=== PATIENT | female | born 1950 | race Caucasian/White ===

== ENCOUNTER 2019-04-30 12:46 | Inpatient (IN) | payer MEDICARE, BC ==
--- NOTE | 2019-04-30 13:25 | ED Physician Chart ---
ED Chief Complaint/HPI - Patient Information Date Seen:: 04/30/19 Time Seen:: 13:20 Chief Complaint:: Right lower leg pain and edema History of Present Illness:: 68 yo female with history of anemia, GERD, DM II on insulin, hypertension, hyperlipidemia, fell with right ankle sprained when her walker failed to stop a month ago. Pt went to [facility] ED where X ray of right ankle showed no fracture. Subsequently, pt developed swelling of the right leg with persisting pain in the right ankle. Pt lives primarily by herself in a rented trailer. Her son was in and out nursing home. Her son is currently living with pt. As her son caused trouble in the trailer park, both pt and her son are facing the possibility of being evicted. Allergies:: Allergies Allergy/AdvReac Type Severity Reaction Status Date / Time No Known Allergies Allergy Verified 04/30/19 13:06 Vitals:: Vital Signs - 8 hr 04/30/19 12:56 Temp 98.0 F HR 96 RR 20 BP 156/84 O2 Sat % 97 ED Review of Systems - Review of Systems General/Constitutional: No fever, No chills, Weakness Skin: Skin lesions Head: Headache Eyes: No pain ENT: Earache Neck: No neck pain Cardio Vascular: No chest pain Pulmonary: No SOB GI: No nausea, No vomiting Musculoskeletal: Bone or joint pain Neurological: No focal symptoms, No seizure ED Past Medical History - Past Medical History Past Medical History: HTN, DM, Dyslipidemia, PUD/GERD, Arthritis, Other (Anemia) Social History: Non Smoker, No Alcohol, No Drug Use Surgical History: other (Left scalp surgery) Family Medical History - Family Member Mother History Unknown: Yes ED Physical Exam - Physical Examination General/Constitutional: Awake, Alert Head: Atraumatic Eyes: PERRL, EOMI Other Skin comments:: a few wounds with scab on bilateral lower legs Neck: No nuchal rigidity Respiratory: No Wheeze/Rhonchi/Rales Cardio Vascular: RRR, No murmur, gallop, rubs, NL S1 S2 GI: No tenderness/rebounding/guarding Other Extremities comments:: Right leg 2+ edema Neuro/Psych: Alert/oriented ED Labs/Radiology/EKG Results - Lab Results Results: Laboratory Last Values WBC 6.9 Th/cmm (4.8-10.8) 04/30/19 14:00 RBC 4.24 Mil/cmm (3.80-5.20) 04/30/19 14:00 Hgb 11.8 gm/dL (12-16) L 04/30/19 14:00 Hct 36.4 % (41.0-60) L 04/30/19 14:00 MCV 85.9 fl (81-100) 04/30/19 14:00 MCH 27.9 pg (27.0-31.0) 04/30/19 14:00 MCHC Differential 32.5 pg (28.0-36.0) 04/30/19 14:00 RDW 13.2 % (11.5-20.0) 04/30/19 14:00 Plt Count 246 Th/cmm (150-400) 04/30/19 14:00 MPV 9.0 fl 04/30/19 14:00 Neutrophils % 65.7 % (40.0-80.0) 04/30/19 14:00 Lymphocytes % 26.4 % (20.0-50.0) 04/30/19 14:00 Monocytes % 5.3 % (2.0-10.0) 04/30/19 14:00 Eosinophils % 2.0 % (0.0-5.0) 04/30/19 14:00 Basophils % 0.6 % (0.0-2.0) 04/30/19 14:00 PT 9.3 SECONDS (9.5-11.5) L 04/30/19 14:00 INR 0.88 (0.5-1.4) 04/30/19 14:00 PTT (Actin FS) 23.0 SECONDS (26.0-38.0) L 04/30/19 14:00 D-Dimer 2140 ng/mL (100-400) H 04/30/19 14:00 Sodium 129 mEq/L (136-145) L 04/30/19 14:00 Potassium 4.8 mEq/L (3.5-5.1) 04/30/19 14:00 Chloride 97 mEq/L (98-107) L 04/30/19 14:00 Carbon Dioxide 22.3 mEq/L (21.0-31.0) 04/30/19 14:00 Anion Gap 14.5 (7.0-16.0) 04/30/19 14:00 BUN 49 mg/dL (7-25) H 04/30/19 14:00 Creatinine 1.2 mg/dL (0.6-1.2) 04/30/19 14:00 Est GFR ( Amer) 57.5 ml/min (>90) 04/30/19 14:00 Est GFR (Non-Af Amer) 47.5 ml/min 04/30/19 14:00 BUN/Creatinine Ratio 40.8 04/30/19 14:00 Glucose 409 mg/dL (70-105) H 04/30/19 14:00 Calcium 9.4 mg/dL (8.6-10.3) 04/30/19 14:00 Total Bilirubin 0.4 mg/dL (0.3-1.0) 04/30/19 14:00 AST 14 U/L (13-39) 04/30/19 14:00 ALT 20 U/L (7-52) 04/30/19 14:00 Alkaline Phosphatase 121 U/L (34-104) H 04/30/19 14:00 Troponin I < 0.01 ng/mL (0.01-0.05) L 04/30/19 14:00 B-Natriuretic Peptide 7.1 pg/mL (5.0-100.0) 04/30/19 14:00 Total Protein 7.0 gm/dL (6.0-8.3) 04/30/19 14:00 Albumin 3.8 gm/dL (3.7-5.3) 04/30/19 14:00 Globulin 3.2 gm/dL 04/30/19 14:00 Albumin/Globulin Ratio 1.2 (1.0-1.8) 04/30/19 14:00 Triglycerides 286 mg/dL (<150) H 04/30/19 14:00 Cholesterol 229 mg/dL (<200) H 04/30/19 14:00 LDL Cholesterol Direct 123 mg/dL (75-193) 04/30/19 14:00 HDL Cholesterol 43 mg/dL (23-92) 04/30/19 14:00 TSH 0.97 uIU/ml (0.34-5.60) 04/30/19 14:00 Urine Source MIDSTREAM 04/30/19 14:00 Urine Color YELLOW 04/30/19 14:00 Urine Clarity CLOUDY (CLEAR) H 04/30/19 14:00 Urine pH 5.5 (4.6 - 8.0) 04/30/19 14:00 Ur Specific [place] 1.020 (1.005-1.030) 04/30/19 14:00 Urine Protein 100 mg/dL (NEGATIVE) H 04/30/19 14:00 Urine Glucose (UA) >=1000 mg/dL (NEGATIVE) H 04/30/19 14:00 Urine Ketones NEGATIVE mg/dL (NEGATIVE) 04/30/19 14:00 Urine Blood TRACE (NEGATIVE) 04/30/19 14:00 Urine Nitrate NEGATIVE (NEGATIVE) 04/30/19 14:00 Urine Bilirubin NEGATIVE (NEGATIVE) 04/30/19 14:00 Urine Urobilinogen 0.2 E.U./dL (0.2 - 1.0) 04/30/19 14:00 Ur Leukocyte Esterase MODERATE (NEGATIVE) H 04/30/19 14:00 Urine RBC 2-5 /hpf (0-5) 04/30/19 14:00 Urine WBC 10-25 /hpf (0-5) H 04/30/19 14:00 Ur Epithelial Cells MODERATE /lpf (FEW) 04/30/19 14:00 Urine Bacteria 3+ /hpf (NONE SEEN) H 04/30/19 14:00 Fine Granular Casts 0-2 /lpf (NONE SEEN) H 04/30/19 14:00 Urine Opiates Screen NEGATIVE (NEGATIVE) 04/30/19 14:00 Urine Methadone Screen NEGATIVE (NEGATIVE) 04/30/19 14:00 Ur Barbiturates Screen NEGATIVE (NEGATIVE) 04/30/19 14:00 Ur Tricyclics Screen NEGATIVE (NEGATIVE) 04/30/19 14:00 Ur Phencyclidine Scrn NEGATIVE (NEGATIVE) 04/30/19 14:00 Amphetamines Screen NEGATIVE (NEGATIVE) 04/30/19 14:00 U Methamphetamines Scrn NEGATIVE (NEGATIVE) 04/30/19 14:00 U Benzodiazepines Scrn NEGATIVE (NEGATIVE) 04/30/19 14:00 U Cocaine Metab Screen NEGATIVE (NEGATIVE) 04/30/19 14:00 U Cannabinoids Screen NEGATIVE (NEGATIVE) 04/30/19 14:00 - Radiology Results Results: CXR: no focal consolidation Right ankle X ray: no acute bony fracture Right knee X ray: moderate to severe DJD RLE venous u/s: no evidence of DVT by conservation technician CTA chest: small intraluminal filling defect within branches of left lower pulm arteries consistent with PE, per STAT radiology report - EKG Interpretations EKG Time:: 13:46 Rate & Rhythm: 87 bpm, sinus rhythm Comments:: Non specific ST changes in I, II ED Assessment - Assessment General Assessment: Pulmonary embolism with elevated D-Dimer Urinary tract infection Hyponatremia Dehydration Mild anemia, normocytic Right lower extremity edema Right knee DJD Assessment/Comments:: CBC, CMP, BNP, troponin, HbA1c, lipid panel CXR, EKG Right ankle X ray Right knee X ray RLE venous u/s CTA chest to rule out PE NS 1L IV bolus Ceftriaxone 1g IV Heparin 7000 U IV bolus Heparin drip per pharmacy ordered To check PTT 6 hours after starting of heparin bolus and drip Admit to telemetry The diagnosis of PE was notified to ER nursing staff and admitting MD. ED Septic Shock - . Is Septic Shock (SBP<90, OR Lactate>4 mmol\L) present?: No - <6hrs of presentation: Vital Signs: Vital Signs - 8 hr 04/30/19 12:56 Temp 98.0 F HR 96 RR 20 BP 156/84 O2 Sat % 97 ED Reassessment (Disposition) - Reassessment Reassessment Condition:: Improved - Patient Disposition Discharge/Transfer:: Acute Care w/in this hosp Admitting Medical Physician:: Jean Hitchcock
[2019-04-30 14:06] LABS: % BASOPHILS 0.6 % (0.0-2.0); % LYMPHOCYTES 26.4 % (20.0-50.0); % MONOCYTES 5.3 % (2.0-10.0); % NEUTROPHILS 65.7 % (40.0-80.0); EOSINOPHILE ABSOLUTE 0.1 Th/cmm (0.1-0.4); HEMATOCRIT 36.4 % (41.0-60); HEMOGLOBIN 11.8 gm/dL (12-16); LYMPHOCYTE ABSOLUTE 1.8 Th/cmm (1.5-3.0); MEAN CELL VOLUME 85.9 fl (81-100); MEAN CORPUSCULAR HEMOGLOBIN 27.9 pg (27.0-31.0); MEAN CORPUSCULAR HGB CONC 32.5 pg (28.0-36.0); MONOCYTE ABSOLUTE 0.4 Th/cmm (0.3-1.0); NEUTROPHILE ABSOLUTE 4.6 Th/cmm (1.8-8.0); PLATELET COUNT 246 Th/cmm (150-400); RED BLOOD COUNT 4.24 Mil/cmm (3.80-5.20); RED CELL DISTRIBUTION WIDTH 13.2 % (11.5-20.0); URINE SOURCE MIDSTREAM; WHITE BLOOD COUNT 6.9 Th/cmm (4.8-10.8)
[2019-04-30 14:10] LABS: URINE BILIRUBIN NEGATIVE (NEGATIVE); URINE BLOOD TRACE (NEGATIVE); URINE GLUCOSE (UA) >=1000 mg/dL (NEGATIVE); URINE KETONE NEGATIVE (NEGATIVE); URINE LEUKOCYTE ESTERASE MODERATE (NEGATIVE); URINE MICROSCOPIC INDICATED? YES; URINE NITRATE NEGATIVE (NEGATIVE); URINE PH 5.5 (4.6 - 8.0); URINE PROTEIN 100 mg/dL (NEGATIVE); URINE UROBILINOGEN 0.2 E.U./dL (0.2 - 1.0)
[2019-04-30 14:11] LABS: URINE CLARITY CLOUDY (CLEAR); URINE COLOR YELLOW
[2019-04-30 14:18] LABS: AMPHETAMINE URINE NEGATIVE (NEGATIVE); BARBITURATES URINE NEGATIVE (NEGATIVE); BENZODIAZEPINES QUAL URINE NEGATIVE (NEGATIVE); CANNABINOID THC NEGATIVE (NEGATIVE); COCAINE METABOLITE QUAL URINE NEGATIVE (NEGATIVE); METHADONE URINE NEGATIVE (NEGATIVE); METHAMPHETAMINES QUAL URINE NEGATIVE (NEGATIVE); OPIATES (MORPHINE) QUAL. URINE NEGATIVE (NEGATIVE); PHENCYCLIDINE (PCP) URINE NEGATIVE (NEGATIVE); TRICYCLICS (TCA) QUAL. URINE NEGATIVE (NEGATIVE)
[2019-04-30 14:19] LABS: INR 0.88 (0.5-1.4)
[2019-04-30 14:22] LABS: ALB/GLOB RATIO 1.2 (1.0-1.8); ALBUMIN 3.8 gm/dL (3.7-5.3); ANION GAP 14.5 (7.0-16.0); CALCIUM SERUM 9.4 mg/dL (8.6-10.3); CARBON DIOXIDE 22.3 mEq/L (21.0-31.0); CREATININE - SERUM 1.2 mg/dL (0.6-1.2); GFR AFRICAN-AMERICAN 57.5 ml/min (>90); GFR NON AFRICAN-AMERICAN 47.5 ml/min; POTASSIUM SERUM 4.8 mEq/L (3.5-5.1)
[2019-04-30 14:28] LABS: URINE BACTERIA 3+ /hpf (NONE SEEN); URINE EPITHELIAL CELLS MODERATE /lpf (FEW); URINE FINE GRANULAR CAST 0-2 /lpf (NONE SEEN)
[2019-04-30] MEDS ORDERED: Sodium Chloride 0.9% 1,000 ML IV ONE (14:55)
[2019-04-30] MEDS ORDERED: cefTRIAXone 1 GM in Sodium Chloride 0.9% 50 ML IV ONE (15:05)
[2019-04-30] MEDS ORDERED: INSULIN HUMAN REGULAR 100 UNIT/ML VIAL SUBQ ONE (15:16)
[2019-04-30] MEDS ORDERED: INSULIN HUMAN REGULAR 100 UNIT/ML VIAL ONE (15:18)
[2019-04-30 16:16] LABS: BILIRUBIN,TOTAL 0.4 mg/dL (0.3-1.0)
[2019-04-30] MEDS ORDERED: IOHEXOL 350mgI/mL 100mL Bottle IVP ONE (16:33)
[2019-04-30] MEDS ORDERED: Heparin Sod 5,000Units/ML 5,000 UNITS/ML VIAL IVP ONE (18:36)
[2019-04-30] MEDS: Heparin 25,000 Units In D5W 25,000 UNITS/250 ML BAG IV PRN (19:12)
[2019-04-30] MEDS ORDERED: GLUCAGON HCl 1 MG KIT IM PRN (20:39)
[2019-04-30] MEDS ORDERED: Dextrose 50% 50 mL Abboject IVP PRN (20:39)
[2019-04-30 20:48] VITALS: BP 137/77
[2019-04-30] MEDS: Sodium Chloride 0.9% 1,000 ML IV SCH (21:14)
[2019-04-30] MEDS ORDERED: INSULIN LISPRO 100 UNIT/ML VIAL SUBQ ONE (21:35)
[2019-04-30] MEDS: INSULIN LISPRO SLIDING SCALE 100 UNITS/ML UNIT SUBQ SCH (21:36)
[2019-05-01] MEDS ORDERED: Pneumococcal Vaccine 0.5 mL Vial IM ONE (00:09)
[2019-05-01] MEDS: INSULIN LISPRO SLIDING SCALE 100 UNITS/ML UNIT SUBQ SCH ×4 (08:57→20:58)
[2019-05-01 09:09] LABS: INR 0.94 (0.5-1.4)
--- NOTE | 2019-05-01 11:33 | Diagnostic Imaging Report ---
CHEST X-RAY: AP view INDICATION: Shortness of breath COMPARISON: None FINDINGS: There is abnormal right suprahilar opacity. No effusions. Heart size normal. Degenerative changes of the spine are noted. IMPRESSION: Abnormal right suprahilar opacity. Neoplasm or pneumonia cannot be excluded recommend further assessment CT examination.
--- NOTE | 2019-05-01 11:34 | Diagnostic Imaging Report ---
Right lower extremity DVT study HISTORY: Edema COMPARISON: None Technique: Longitudinal and transverse sonographic images of the right lower extremity veins were obtained with doppler analysis. FINDINGS: There is normal compressibility, augmentation and phasicity of the right common femoral, superficial femoral, popliteal, and posterior tibial veins. No thrombus is visualized. IMPRESSION: No evidence of thrombus within the right lower extremity veins.
--- NOTE | 2019-05-01 11:36 | Diagnostic Imaging Report ---
Right knee 3 views Indication: pain Comparison: none Findings: Moderate to advanced degenerative changes are noted with advanced narrowing of the medial knee compartment. Chondrocalcinosis is noted. No evidence of an acute fracture or joint effusion. Marginal osteophytic spurs are noted. Few nonspecific calcifications are seen surrounding the knee joint. Diffuse atherosclerosis is noted. Impression: Moderate to advanced degenerative changes greatest within the medial knee compartment. No evidence of an acute fracture Chondrocalcinosis. Atherosclerotic vascular disease. In the setting of trauma, if clinical symptoms persist and there is continued concern for an occult fracture, follow up exams in 5-7 days is suggested.
--- NOTE | 2019-05-01 11:37 | Diagnostic Imaging Report ---
Right ankle 3 views Indication: pain Comparison: none Findings: Generalized subcutaneous edema is noted. Large distal Achilles and plantar calcaneal spurs are noted. Mild degenerative changes are noted. No evidence of an acute fracture or dislocation. Vascular phleboliths are noted. Impression: No evidence of an acute fracture. Generalized subcutaneous edema, correlate clinically Large distal Achilles a large plantar calcaneal spur. Atherosclerotic vascular disease. In the setting of trauma, if clinical symptoms persist and there is continued concern for an occult fracture, follow up exams in 5-7 days is suggested.
--- NOTE | 2019-05-01 11:46 | Diagnostic Imaging Report ---
CT Chest PE study Indication: Elevated d-dimer Comparison: Chest x-ray earlier the same day, Technique: Axial images were obtained from the base of the neck to the upper abdomen, following administration of IV contrast, PE protocol. Multiplanar reconstructions were made. total DLP: 366, CTDI9.2 FINDINGS: No evidence of mediastinal lymphadenopathy. The heart size is normal. Mild atherosclerotic vascular disease is noted. No pericardial effusion identified. Evaluation of the pulmonary parenchyma demonstrates hypoventilatory and atelectatic lung changes. No focal consolidation or pleural effusions. Evaluation of the pulmonary arterial vasculature demonstrates pulmonary emboli involving the segmental and subsegmental branches supplying the left lower lobe. The upper abdomen demonstrates no acute abnormalities. There is mild nodularity left adrenal gland. Degenerative changes of the spine are noted. IMPRESSION: Positive PE study with pulmonary emboli involving the segmental and subsegmental branches supplying the left lower lobe. Atelectatic lung changes with no focal consolidation identified Minimal atherosclerotic vascular disease. There is mild nodularity of the left adrenal gland. Recommend correlation with clinical history and old exams and short-term follow-up surveillance. Results relayed to the referring team following exam.
[2019-05-01] MEDS: Sodium Chloride 0.9% 1,000 ML IV SCH (11:49)
[2019-05-01] MEDS: Aspirin 81mg Chewable Tab PO SCH (12:17)
[2019-05-01] MEDS: Pantoprazole 40 mg EC Tab PO SCH (12:17)
[2019-05-01] MEDS: Insulin Glargine 100 units/ml 10ml Vial SUBQ SCH ×2 (12:37→20:58)
[2019-05-01] MEDS ORDERED: INSULIN ASPART 12 UNIT SUBQ SCH (14:00)
[2019-05-01] MEDS ORDERED: Apixaban 5 MG TABLET PO SCH ×2 (14:30→17:00)
[2019-05-01] MEDS: Heparin 25,000 Units In D5W 25,000 UNITS/250 ML BAG IV PRN (14:40)
[2019-05-01] MEDS: cefTRIAXone 1 GM in Sodium Chloride 0.9% 50 ML IV SCH (16:35)
--- NOTE | 2019-05-01 18:01 | History & Physical ---
ADMIT DATE: 04/30/2019 CHIEF COMPLAINT: Cough and not feeling well. HISTORY OF PRESENT ILLNESS: This is a 68-year-old female with underlying history of diabetes, hypertension, neuropathy, hyperlipidemia, who was brought into Emergency Room for evaluation of the generalized weakness, not feeling well for the past few days. The patient was brought to Emergency Room. Initial workup suggestive of elevated D-dimer, UTI, hyponatremia and uncontrolled diabetes. Subsequently, the patient had a CT angio done, which came back positive for PE per ER report, so the patient was admitted for further evaluation and treatment. The patient denies any chest pain, no shortness of breath, no dizziness, no palpitations, no fever, no chills, no nausea, no vomiting, no abdominal pain, no headache or any trouble vision, trouble speech. PAST MEDICAL HISTORY: History of diabetes, hypertension, hyperlipidemia, neuropathy. PAST SURGICAL HISTORY: Denies. FAMILY HISTORY: Denies. SOCIAL HISTORY: Lives at home. Denies any tobacco use. CURRENT MEDICATIONS: Per medication reconciliation. ALLERGIES: No known drug allergies. REVIEW OF SYSTEMS: As per HPI, 12-point system is negative. PHYSICAL EXAMINATION: VITAL SIGNS: Temperature 97.1, pulse 87, respirations 18, blood pressure 152/75, 99% on room air via nasal cannula. HEART: S1, S2 normal. LUNGS: Clear to auscultation bilaterally. ABDOMEN: Soft, nontender. NEUROLOGIC: The patient is alert, awake, follows moves all 4 extremities. EXTREMITIES: No edema or calf tenderness. AVAILABLE LAB DATA: Reviewed. ASSESSMENT: 1. Pulmonary embolism with elevated D-dimer. 2. Urinary tract infection. 3. Hypernatremia. 4. Diabetes, uncontrolled. 5. Hypertension, uncontrolled. 6. Hyperlipidemia. 7. Dehydration. PLAN: The patient admitted to tele unit. The patient was started on heparin drip, IV Rocephin. Hematology consulted. The patient's home medication reconciled and continued. Basal bolus insulin will be given. Monitor Accu-Cheks and insulin sliding coverage will be given. The patient stated that she has a sister diagnosed with the stage IV colon cancer. The patient never had a colonoscopy, also had a mammogram several years ago. We will obtain cancer screening outpatient including mammogram, colon cancer. We also have Hematology/Oncology on board. We will follow up on their recommendations. Discussed with the patient regarding condition per our nursing staff. JOB# [id number]
[2019-05-01] MEDS ORDERED: Insulin Glargine 100 units/ml 10ml Vial SUBQ SCH (21:00)
[2019-05-02] MEDS: Sodium Chloride 0.9% 1,000 ML IV SCH ×2 (01:46→16:57)
[2019-05-02] MEDS: INSULIN LISPRO SLIDING SCALE 100 UNITS/ML UNIT SUBQ SCH ×4 (07:55→21:19)
[2019-05-02] MEDS: Aspirin 81mg Chewable Tab PO SCH (08:34)
[2019-05-02] MEDS: Pantoprazole 40 mg EC Tab PO SCH (08:35)
[2019-05-02] MEDS: Apixaban 5 MG TABLET PO SCH ×2 (08:37→18:00)
[2019-05-02] MEDS: cefTRIAXone 1 GM in Sodium Chloride 0.9% 50 ML IV SCH (17:57)
[2019-05-02] MEDS ORDERED: INSULIN LISPRO 100 UNIT/ML VIAL SUBQ ONE (21:11)
[2019-05-02] MEDS: Insulin Glargine 100 units/ml 10ml Vial SUBQ SCH (21:23)
--- NOTE | 2019-05-02 22:20 | General Progress Note ---
Subjective - Review of Systems Service Date: 05/02/19 Subjective: Patient seen and examined feels better denied any complaints Objective - Results Result Diagrams: 04/30/19 14:00 04/30/19 14:00 Recent Labs: Laboratory Last Values WBC 6.9 Th/cmm (4.8-10.8) 04/30/19 14:00 RBC 4.24 Mil/cmm (3.80-5.20) 04/30/19 14:00 Hgb 11.8 gm/dL (12-16) L 04/30/19 14:00 Hct 36.4 % (41.0-60) L 04/30/19 14:00 MCV 85.9 fl (81-100) 04/30/19 14:00 MCH 27.9 pg (27.0-31.0) 04/30/19 14:00 MCHC Differential 32.5 pg (28.0-36.0) 04/30/19 14:00 RDW 13.2 % (11.5-20.0) 04/30/19 14:00 Plt Count 246 Th/cmm (150-400) 04/30/19 14:00 MPV 9.0 fl 04/30/19 14:00 Neutrophils % 65.7 % (40.0-80.0) 04/30/19 14:00 Lymphocytes % 26.4 % (20.0-50.0) 04/30/19 14:00 Monocytes % 5.3 % (2.0-10.0) 04/30/19 14:00 Eosinophils % 2.0 % (0.0-5.0) 04/30/19 14:00 Basophils % 0.6 % (0.0-2.0) 04/30/19 14:00 PT 9.8 SECONDS (9.5-11.5) 05/01/19 08:45 INR 0.94 (0.5-1.4) 05/01/19 08:45 PTT (Actin FS) 61.4 SECONDS (26.0-38.0) H 05/01/19 14:30 D-Dimer 2140 ng/mL (100-400) H 04/30/19 14:00 Sodium 129 mEq/L (136-145) L 04/30/19 14:00 Potassium 4.8 mEq/L (3.5-5.1) 04/30/19 14:00 Chloride 97 mEq/L (98-107) L 04/30/19 14:00 Carbon Dioxide 22.3 mEq/L (21.0-31.0) 04/30/19 14:00 Anion Gap 14.5 (7.0-16.0) 04/30/19 14:00 BUN 49 mg/dL (7-25) H 04/30/19 14:00 Creatinine 1.2 mg/dL (0.6-1.2) 04/30/19 14:00 Est GFR ( Amer) 57.5 ml/min (>90) 04/30/19 14:00 Est GFR (Non-Af Amer) 47.5 ml/min 04/30/19 14:00 BUN/Creatinine Ratio 40.8 04/30/19 14:00 Glucose 409 mg/dL (70-105) H 04/30/19 14:00 POC Glucose 205 MG/DL (70 - 105) H 05/02/19 20:36 Calcium 9.4 mg/dL (8.6-10.3) 04/30/19 14:00 Total Bilirubin 0.4 mg/dL (0.3-1.0) 04/30/19 14:00 AST 14 U/L (13-39) 04/30/19 14:00 ALT 20 U/L (7-52) 04/30/19 14:00 Alkaline Phosphatase 121 U/L (34-104) H 04/30/19 14:00 Troponin I < 0.01 ng/mL (0.01-0.05) L 04/30/19 14:00 B-Natriuretic Peptide 7.1 pg/mL (5.0-100.0) 04/30/19 14:00 Total Protein 7.0 gm/dL (6.0-8.3) 04/30/19 14:00 Albumin 3.8 gm/dL (3.7-5.3) 04/30/19 14:00 Globulin 3.2 gm/dL 04/30/19 14:00 Albumin/Globulin Ratio 1.2 (1.0-1.8) 04/30/19 14:00 Triglycerides 286 mg/dL (<150) H 04/30/19 14:00 Cholesterol 229 mg/dL (<200) H 04/30/19 14:00 LDL Cholesterol Direct 123 mg/dL (75-193) 04/30/19 14:00 HDL Cholesterol 43 mg/dL (23-92) 04/30/19 14:00 TSH 0.97 uIU/ml (0.34-5.60) 04/30/19 14:00 Urine Source MIDSTREAM 04/30/19 14:00 Urine Color YELLOW 04/30/19 14:00 Urine Clarity CLOUDY (CLEAR) H 04/30/19 14:00 Urine pH 5.5 (4.6 - 8.0) 04/30/19 14:00 Ur Specific [place] 1.020 (1.005-1.030) 04/30/19 14:00 Urine Protein 100 mg/dL (NEGATIVE) H 04/30/19 14:00 Urine Glucose (UA) >=1000 mg/dL (NEGATIVE) H 04/30/19 14:00 Urine Ketones NEGATIVE mg/dL (NEGATIVE) 04/30/19 14:00 Urine Blood TRACE (NEGATIVE) 04/30/19 14:00 Urine Nitrate NEGATIVE (NEGATIVE) 04/30/19 14:00 Urine Bilirubin NEGATIVE (NEGATIVE) 04/30/19 14:00 Urine Urobilinogen 0.2 E.U./dL (0.2 - 1.0) 04/30/19 14:00 Ur Leukocyte Esterase MODERATE (NEGATIVE) H 04/30/19 14:00 Urine RBC 2-5 /hpf (0-5) 04/30/19 14:00 Urine WBC 10-25 /hpf (0-5) H 04/30/19 14:00 Ur Epithelial Cells MODERATE /lpf (FEW) 04/30/19 14:00 Urine Bacteria 3+ /hpf (NONE SEEN) H 04/30/19 14:00 Fine Granular Casts 0-2 /lpf (NONE SEEN) H 04/30/19 14:00 Urine Opiates Screen NEGATIVE (NEGATIVE) 04/30/19 14:00 Urine Methadone Screen NEGATIVE (NEGATIVE) 04/30/19 14:00 Ur Barbiturates Screen NEGATIVE (NEGATIVE) 04/30/19 14:00 Ur Tricyclics Screen NEGATIVE (NEGATIVE) 04/30/19 14:00 Ur Phencyclidine Scrn NEGATIVE (NEGATIVE) 04/30/19 14:00 Amphetamines Screen NEGATIVE (NEGATIVE) 04/30/19 14:00 U Methamphetamines Scrn NEGATIVE (NEGATIVE) 04/30/19 14:00 U Benzodiazepines Scrn NEGATIVE (NEGATIVE) 04/30/19 14:00 U Cocaine Metab Screen NEGATIVE (NEGATIVE) 04/30/19 14:00 U Cannabinoids Screen NEGATIVE (NEGATIVE) 04/30/19 14:00 - Physical Exam Vitals and I&O: Vital Signs Temp 98.1 F 05/02/19 19:51 Pulse 89 05/02/19 21:26 Resp 20 05/02/19 19:51 BP 126/60 05/02/19 21:26 Pulse Ox 99 05/02/19 19:51 Intake & Output 05/02/19 05/02/19 05/03/19 06:59 18:59 06:59 Intake Total 976.5 2009 Balance 976.5 2009 Weight (lbs) 84.822 kg Intake: Intake, IV Amount 976.5 1000 Sodium Chloride 0.9% 1, 976.5 1000 000 ml @ 70 mls/hr IV . [id number] [facility] Rx#:[id number] Oral 1010 Other: # Voids 4 # Bowel Movements 4 Stool Characteristics Soft Brown Weight Source Bedscale Active Medications: Current Medications Aspirin (Aspirin Chewable) 81 mg PO DAILY [facility] Stop: 06/30/19 11:59 Last Admin: 05/02/19 08:34 Dose: 81 mg Atorvastatin Calcium (Lipitor) 80 mg PO DAILY [facility]; Protocol Stop: 06/30/19 11:59 Last Admin: 05/02/19 08:34 Dose: 80 mg Benazepril HCl (Lotensin) 40 mg PO [facility] Stop: 06/30/19 20:59 Last Admin: 05/02/19 21:26 Dose: 40 mg Dextrose (D50w) 50 ml IVP PRN PRN PRN Reason: BS below 70 & not tolerate po Stop: 06/29/19 20:38 Dextrose (Glutose 40%) 18.75 gm PO PRN PRN PRN Reason: BS below 70 & tolerate po Stop: 06/29/19 20:38 Gabapentin 400 mg/ Gabapentin (100 mg) 500 mg PO BID [facility] Stop: 06/30/19 16:59 Last Admin: 05/02/19 18:00 Dose: 500 mg Glucagon (Glucagen) 1 mg IM PRN PRN PRN Reason: BS Below 70&dextrose ineffecti Stop: 06/29/19 20:38 Ceftriaxone Sodium 1 gm/ (Sodium Chloride) 50 mls @ 100 mls/hr IV Q24HR [facility] Stop: 06/30/19 16:59 Last Admin: 05/02/19 17:57 Dose: 100 mls/hr Sodium Chloride (Nacl 0.9%) 1,000 mls @ 70 mls/hr IV .[id number] [facility] Stop: 06/29/19 20:38 Last Admin: 05/02/19 16:57 Dose: 70 mls/hr Insulin Glargine (Lantus Insulin) 60 units SUBQ HS [facility] Stop: 06/30/19 10:48 Last Admin: 05/02/19 21:23 Dose: 60 units Insulin Human Lispro (Humalog Insulin Sliding Scale) 0 units SUBQ ACHS [facility]; Protocol Stop: 06/29/19 20:59 Last Admin: 05/02/19 21:19 Dose: 4 units Metformin HCl (Glucophage) 850 mg PO TID [facility] Stop: 06/30/19 13:59 Last Admin: 05/02/19 21:27 Dose: 850 mg Metoprolol Succinate (Toprol Xl) 25 mg PO DAILY [facility] Stop: 06/30/19 11:59 Last Admin: 05/02/19 08:35 Dose: 25 mg Pantoprazole Sodium (Protonix) 40 mg PO DAILY [facility] Stop: 06/30/19 11:59 Last Admin: 05/02/19 08:35 Dose: 40 mg General: Alert Cardiovascular: Regular rate Lungs: Clear to auscultation Assessment/Plan - Assessment Assessment: Acute PE UTI DM II with Neuropathy HTN - Plan Plan: continue Eliquis Awaiting Hematology oncolgy eval SNIF DC plan dw the patient. patient understood and agreed Plan of care dw nursing staff Nutritional Asmnt/Malnutr-PDOC - Dietary Evaluation Malnutrition Findings (Please click <Entered> for more info): Nutritional Asmnt/Malnutrition Start: 05/02/19 13: 45 Text: Status: Complete Freq: Protocol: Document 05/02/19 13:45 JOSE ENRIQUE (Rec: 05/02/19 13:50 JOSE ENRIQUE [id number]) Nutritional Asmnt/Malnutrition Patient General Information Nutritional Screening Moderate Risk Consult Diagnosis UTI, Dehydration Pertinent Medical Hx/Surgical Hx Anemia, GERD, DMT2, HTN, Hyperlipidemia, Arthritis, LT Scalp Surgery Subjective Information Consult: Diabetic Pt is a 68-year-old female admitted on from home 04/30 c/o Rt lower leg pain with 2+ edema. Per ER Chart, PT fell and sprained her RT ankle about a month ago. Pt ate 75- 100% meals 05/01 per Meal/ Nutrition Activity Record. Spoke with Pt after lunch, she was sitting up and had a close family friend at bedside . Pt stated it was OK for friend to stay and listen. Pt stated she has had DM for a long time, but she has trouble controlling her glucose numbers. She does not follow a diet at home, and is being evicted from her home. Pt stated she is going to a convalescent home once discharged and they will provide meals for her. I gave Pt some general education pertaining to a DM diet and provided educational materials to read at her discretion, and stated she should let the convalescent home know she has DM and to keep her on a CCHO diet. Pt understood and was grateful. Stated she has a little diarrhea today, but otherwise feels good, and is happy with the food she has received. HT: 54 WT: 185 LB (84.09 kg) ABW: 136 LB (61.93 kg) BMI: 31.76 (Obese) GI: WNL, Soft, Non-tender, Large BM: 05/02 x1 I/O: 360/Not Noted Skin: Warm, Dry, Loose. BRUNO Lower Extremities with dryness and skin lesions. Edema: 1+ non-pitting Addi: 18 Diet Order: Mechanical Soft, CCHO 45gm Estimated Energy Needs: ( Geriatric, ABW) 6910-9568 kcals (25-30 kcals/ kg) 62-74g Pro (1.0-1.2 g/kg) 7749-0131 ml (25-30 ml/kg) Current Diet Order/ Nutrition Support Mechanical Soft, CCHO 45gm Pertinent Medications Lipitor, D50w (PRN), Glutose 40% (PRN), Glucagen (PRN0, Lantus, INS-SS, Glucophage, Protonix, Nacl 0.9% Pertinent Labs 04/30: Hgb/Hct 11.8/36.4 POC glucose (last 24 hours): 381, 290, 214, 199, 158, 77 Nutritional Hx/Data Height 1.63 m Height (Calculated Centimeters) 162.6 Current Weight (lbs) 83.915 kg Weight (Calculated Kilograms) 83.9 Weight (Calculated Grams) 60173.6 [employer] Body Weight 120 LB (54.55 kg) % [employer] Body Weight 154 Body Mass Index (BMI) 31.7 Weight Status Obese GI Symptoms GI Symptoms Diarrhea Last BM 05/02 x1 Skin Integrity/Comment: Skin: Warm, Dry, Loose. BRUNO Lower Extremities with dryness and skin lesions. Edema: 1+ non-pitting Addi: 18 Current %PO Good (75-100%) Estimated Nutritional Goals BEE in Kcals: Adj wt of IBW Calories/Kcals/Kg 25-30 Kcals Calculated 3303-5364 Protein: Adj wt of IBW Protein g/k.0-1.2 Protein Calculated 62-74 Fluid: ml 6446-9051 ml (25-30 ml/kg) Nutritional Problem 1. Problem Problem Altered nutrition related labs Etiology r/t endocrine dysfunction Signs/Symptoms: aeb POC glucose (last 24 hours ): 381, 290, 214, 199, 158, 77 . Malnutrition Related to Morbid Obesity Malnutrition related to morbid obesity No Intervention/Recommendation Comments 1. Continue with Mechanical Soft, CCHO 45gm diet as ordered. 2. Continue antihyperglycemic medications for glucose control per MD order. 3. Provide bedside education and educational materials pertaining to DM management ( completed). Expected Outcomes/Goals Expected Outcomes/Goals 1. PO intake to meet 75% of nutritional needs. 2. Monitor PO intake, wt, nutrition related labs trend WNL, and skin integrity to trend WNL. 3. F/U as low risk in 7 days, 05/09
[2019-05-03] MEDS: Apixaban 5 MG TABLET PO SCH ×2 (06:14→18:20)
[2019-05-03] MEDS: Sodium Chloride 0.9% 1,000 ML IV SCH (06:19)
[2019-05-03] MEDS: INSULIN LISPRO SLIDING SCALE 100 UNITS/ML UNIT SUBQ SCH ×4 (07:25→21:11)
[2019-05-03] MEDS: Pantoprazole 40 mg EC Tab PO SCH (08:08)
[2019-05-03] MEDS: Aspirin 81mg Chewable Tab PO SCH (08:08)
[2019-05-03] MEDS: cefTRIAXone 1 GM in Sodium Chloride 0.9% 50 ML IV SCH (16:44)
--- NOTE | 2019-05-03 20:13 | General Progress Note ---
Subjective - Review of Systems Service Date: 05/03/19 Subjective: Patient seen and examined feels better denied any complaints Objective - Results Result Diagrams: 04/30/19 14:00 04/30/19 14:00 Recent Labs: Laboratory Last Values WBC 6.9 Th/cmm (4.8-10.8) 04/30/19 14:00 RBC 4.24 Mil/cmm (3.80-5.20) 04/30/19 14:00 Hgb 11.8 gm/dL (12-16) L 04/30/19 14:00 Hct 36.4 % (41.0-60) L 04/30/19 14:00 MCV 85.9 fl (81-100) 04/30/19 14:00 MCH 27.9 pg (27.0-31.0) 04/30/19 14:00 MCHC Differential 32.5 pg (28.0-36.0) 04/30/19 14:00 RDW 13.2 % (11.5-20.0) 04/30/19 14:00 Plt Count 246 Th/cmm (150-400) 04/30/19 14:00 MPV 9.0 fl 04/30/19 14:00 Neutrophils % 65.7 % (40.0-80.0) 04/30/19 14:00 Lymphocytes % 26.4 % (20.0-50.0) 04/30/19 14:00 Monocytes % 5.3 % (2.0-10.0) 04/30/19 14:00 Eosinophils % 2.0 % (0.0-5.0) 04/30/19 14:00 Basophils % 0.6 % (0.0-2.0) 04/30/19 14:00 PT 9.8 SECONDS (9.5-11.5) 05/01/19 08:45 INR 0.94 (0.5-1.4) 05/01/19 08:45 PTT (Actin FS) 61.4 SECONDS (26.0-38.0) H 05/01/19 14:30 D-Dimer 2140 ng/mL (100-400) H 04/30/19 14:00 Sodium 129 mEq/L (136-145) L 04/30/19 14:00 Potassium 4.8 mEq/L (3.5-5.1) 04/30/19 14:00 Chloride 97 mEq/L (98-107) L 04/30/19 14:00 Carbon Dioxide 22.3 mEq/L (21.0-31.0) 04/30/19 14:00 Anion Gap 14.5 (7.0-16.0) 04/30/19 14:00 BUN 49 mg/dL (7-25) H 04/30/19 14:00 Creatinine 1.2 mg/dL (0.6-1.2) 04/30/19 14:00 Est GFR ( Amer) 57.5 ml/min (>90) 04/30/19 14:00 Est GFR (Non-Af Amer) 47.5 ml/min 04/30/19 14:00 BUN/Creatinine Ratio 40.8 04/30/19 14:00 Glucose 409 mg/dL (70-105) H 04/30/19 14:00 POC Glucose 85 MG/DL (70 - 105) 05/03/19 16:07 Calcium 9.4 mg/dL (8.6-10.3) 04/30/19 14:00 Total Bilirubin 0.4 mg/dL (0.3-1.0) 04/30/19 14:00 AST 14 U/L (13-39) 04/30/19 14:00 ALT 20 U/L (7-52) 04/30/19 14:00 Alkaline Phosphatase 121 U/L (34-104) H 04/30/19 14:00 Troponin I < 0.01 ng/mL (0.01-0.05) L 04/30/19 14:00 B-Natriuretic Peptide 7.1 pg/mL (5.0-100.0) 04/30/19 14:00 Total Protein 7.0 gm/dL (6.0-8.3) 04/30/19 14:00 Albumin 3.8 gm/dL (3.7-5.3) 04/30/19 14:00 Globulin 3.2 gm/dL 04/30/19 14:00 Albumin/Globulin Ratio 1.2 (1.0-1.8) 04/30/19 14:00 Triglycerides 286 mg/dL (<150) H 04/30/19 14:00 Cholesterol 229 mg/dL (<200) H 04/30/19 14:00 LDL Cholesterol Direct 123 mg/dL (75-193) 04/30/19 14:00 HDL Cholesterol 43 mg/dL (23-92) 04/30/19 14:00 TSH 0.97 uIU/ml (0.34-5.60) 04/30/19 14:00 Urine Source MIDSTREAM 04/30/19 14:00 Urine Color YELLOW 04/30/19 14:00 Urine Clarity CLOUDY (CLEAR) H 04/30/19 14:00 Urine pH 5.5 (4.6 - 8.0) 04/30/19 14:00 Ur Specific [place] 1.020 (1.005-1.030) 04/30/19 14:00 Urine Protein 100 mg/dL (NEGATIVE) H 04/30/19 14:00 Urine Glucose (UA) >=1000 mg/dL (NEGATIVE) H 04/30/19 14:00 Urine Ketones NEGATIVE mg/dL (NEGATIVE) 04/30/19 14:00 Urine Blood TRACE (NEGATIVE) 04/30/19 14:00 Urine Nitrate NEGATIVE (NEGATIVE) 04/30/19 14:00 Urine Bilirubin NEGATIVE (NEGATIVE) 04/30/19 14:00 Urine Urobilinogen 0.2 E.U./dL (0.2 - 1.0) 04/30/19 14:00 Ur Leukocyte Esterase MODERATE (NEGATIVE) H 04/30/19 14:00 Urine RBC 2-5 /hpf (0-5) 04/30/19 14:00 Urine WBC 10-25 /hpf (0-5) H 04/30/19 14:00 Ur Epithelial Cells MODERATE /lpf (FEW) 04/30/19 14:00 Urine Bacteria 3+ /hpf (NONE SEEN) H 04/30/19 14:00 Fine Granular Casts 0-2 /lpf (NONE SEEN) H 04/30/19 14:00 Urine Opiates Screen NEGATIVE (NEGATIVE) 04/30/19 14:00 Urine Methadone Screen NEGATIVE (NEGATIVE) 04/30/19 14:00 Ur Barbiturates Screen NEGATIVE (NEGATIVE) 04/30/19 14:00 Ur Tricyclics Screen NEGATIVE (NEGATIVE) 04/30/19 14:00 Ur Phencyclidine Scrn NEGATIVE (NEGATIVE) 04/30/19 14:00 Amphetamines Screen NEGATIVE (NEGATIVE) 04/30/19 14:00 U Methamphetamines Scrn NEGATIVE (NEGATIVE) 04/30/19 14:00 U Benzodiazepines Scrn NEGATIVE (NEGATIVE) 04/30/19 14:00 U Cocaine Metab Screen NEGATIVE (NEGATIVE) 04/30/19 14:00 U Cannabinoids Screen NEGATIVE (NEGATIVE) 04/30/19 14:00 - Physical Exam Vitals and I&O: Vital Signs Temp 97.0 F 05/03/19 15:24 Pulse 89 05/03/19 19:07 Resp 18 05/03/19 19:07 BP 131/76 05/03/19 15:24 Pulse Ox 96 05/03/19 19:07 Intake & Output 05/03/19 05/03/19 05/04/19 06:59 18:59 06:59 Intake Total 935.667 600 Balance 935.667 600 Weight (lbs) 84.822 kg Intake: Intake, IV Amount 935.667 Sodium Chloride 0.9% 1, 935.667 000 ml @ 70 mls/hr IV . [id number] [facility] Rx#:[id number] Oral 600 Other: # Voids 3 # Bowel Movements 0 Weight Source Bedscale Active Medications: Current Medications Aspirin (Aspirin Chewable) 81 mg PO DAILY [facility] Stop: 06/30/19 11:59 Last Admin: 05/03/19 08:08 Dose: 81 mg Atorvastatin Calcium (Lipitor) 80 mg PO DAILY [facility]; Protocol Stop: 06/30/19 11:59 Last Admin: 05/03/19 08:07 Dose: 80 mg Benazepril HCl (Lotensin) 40 mg PO HS [facility] Stop: 06/30/19 20:59 Last Admin: 05/02/19 21:26 Dose: 40 mg Dextrose (D50w) 50 ml IVP PRN PRN PRN Reason: BS below 70 & not tolerate po Stop: 06/29/19 20:38 Dextrose (Glutose 40%) 18.75 gm PO PRN PRN PRN Reason: BS below 70 & tolerate po Stop: 06/29/19 20:38 Gabapentin 400 mg/ Gabapentin (100 mg) 500 mg PO BID [facility] Stop: 06/30/19 16:59 Last Admin: 05/03/19 16:44 Dose: 500 mg Glucagon (Glucagen) 1 mg IM PRN PRN PRN Reason: BS Below 70&dextrose ineffecti Stop: 06/29/19 20:38 Ceftriaxone Sodium 1 gm/ (Sodium Chloride) 50 mls @ 100 mls/hr IV Q24HR [facility] Stop: 06/30/19 16:59 Last Admin: 05/03/19 16:44 Dose: 100 mls/hr Sodium Chloride (Nacl 0.9%) 1,000 mls @ 70 mls/hr IV .[id number] [facility] Stop: 06/29/19 20:38 Last Admin: 05/03/19 06:19 Dose: 70 mls/hr Insulin Glargine (Lantus Insulin) 60 units SUBQ HS [facility] Stop: 06/30/19 10:48 Last Admin: 05/02/19 21:23 Dose: 60 units Insulin Human Lispro (Humalog Insulin Sliding Scale) 0 units SUBQ ACHS [facility]; Protocol Stop: 06/29/19 20:59 Last Admin: 05/03/19 16:23 Dose: Not Given Metformin HCl (Glucophage) 850 mg PO TID [facility] Stop: 06/30/19 13:59 Last Admin: 05/03/19 13:59 Dose: Not Given Metoprolol Succinate (Toprol Xl) 25 mg PO DAILY [facility] Stop: 06/30/19 11:59 Last Admin: 05/03/19 08:56 Dose: 25 mg Pantoprazole Sodium (Protonix) 40 mg PO DAILY [facility] Stop: 06/30/19 11:59 Last Admin: 05/03/19 08:08 Dose: 40 mg General: Alert Cardiovascular: Regular rate Lungs: Clear to auscultation Abdomen: Soft, no Tender Assessment/Plan - Assessment Assessment: Acute PE UTI DM II with Neuropathy HTN - Plan Plan: continue Eliquis Awaiting Hematology oncolgy eval.Case dw Hematology / oncology CT ABD/ PELVIS orederd to r/o malignancy SNIF DC plan dw the patient. patient understood and agreed Plan of care dw nursing staff Nutritional Asmnt/Malnutr-PDOC - Dietary Evaluation Malnutrition Findings (Please click <Entered> for more info): Nutritional Asmnt/Malnutrition Start: 05/02/19 13: 45 Text: Status: Complete Freq: Protocol: Document 05/02/19 13:45 JOSE ENRIQUE (Rec: 05/02/19 13:50 JOSE ENRIQUE [email or web address]) Nutritional Asmnt/Malnutrition Patient General Information Nutritional Screening Moderate Risk Consult Diagnosis UTI, Dehydration Pertinent Medical Hx/Surgical Hx Anemia, GERD, DMT2, HTN, Hyperlipidemia, Arthritis, LT Scalp Surgery Subjective Information Consult: Diabetic Pt is a 68-year-old female admitted on from home 04/30 c/o Rt lower leg pain with 2+ edema. Per ER Chart, PT fell and sprained her RT ankle about a month ago. Pt ate 75- 100% meals 05/01 per Meal/ Nutrition Activity Record. Spoke with Pt after lunch, she was sitting up and had a close family friend at bedside . Pt stated it was OK for friend to stay and listen. Pt stated she has had DM for a long time, but she has trouble controlling her glucose numbers. She does not follow a diet at home, and is being evicted from her home. Pt stated she is going to a convalescent home once discharged and they will provide meals for her. I gave Pt some general education pertaining to a DM diet and provided educational materials to read at her discretion, and stated she should let the convalescent home know she has DM and to keep her on a CCHO diet. Pt understood and was grateful. Stated she has a little diarrhea today, but otherwise feels good, and is happy with the food she has received. HT: 54 WT: 185 LB (84.09 kg) ABW: 136 LB (61.93 kg) BMI: 31.76 (Obese) GI: WNL, Soft, Non-tender, Large BM: 05/02 x1 I/O: 360/Not Noted Skin: Warm, Dry, Loose. BRUNO Lower Extremities with dryness and skin lesions. Edema: 1+ non-pitting Addi: 18 Diet Order: Mechanical Soft, CCHO 45gm Estimated Energy Needs: ( Geriatric, ABW) 0948-5783 kcals (25-30 kcals/ kg) 62-74g Pro (1.0-1.2 g/kg) 6742-9144 ml (25-30 ml/kg) Current Diet Order/ Nutrition Support Mechanical Soft, CCHO 45gm Pertinent Medications Lipitor, D50w (PRN), Glutose 40% (PRN), Glucagen (PRN0, Lantus, INS-SS, Glucophage, Protonix, Nacl 0.9% Pertinent Labs 04/30: Hgb/Hct 11.8/36.4 POC glucose (last 24 hours): 381, 290, 214, 199, 158, 77 Nutritional Hx/Data Height 1.63 m Height (Calculated Centimeters) 162.6 Current Weight (lbs) 83.915 kg Weight (Calculated Kilograms) 83.9 Weight (Calculated Grams) 92247.6 [place] Body Weight 120 LB (54.55 kg) % [place] Body Weight 154 Body Mass Index (BMI) 31.7 Weight Status Obese GI Symptoms GI Symptoms Diarrhea Last BM 05/02 x1 Skin Integrity/Comment: Skin: Warm, Dry, Loose. BRUNO Lower Extremities with dryness and skin lesions. Edema: 1+ non-pitting Addi: 18 Current %PO Good (75-100%) Estimated Nutritional Goals BEE in Kcals: Adj wt of IBW Calories/Kcals/Kg 25-30 Kcals Calculated 4587-1230 Protein: Adj wt of IBW Protein g/k.0-1.2 Protein Calculated 62-74 Fluid: ml 0179-3156 ml (25-30 ml/kg) Nutritional Problem 1. Problem Problem Altered nutrition related labs Etiology r/t endocrine dysfunction Signs/Symptoms: aeb POC glucose (last 24 hours ): 381, 290, 214, 199, 158, 77 . Malnutrition Related to Morbid Obesity Malnutrition related to morbid obesity No Intervention/Recommendation Comments 1. Continue with Mechanical Soft, CCHO 45gm diet as ordered. 2. Continue antihyperglycemic medications for glucose control per MD order. 3. Provide bedside education and educational materials pertaining to DM management ( completed). Expected Outcomes/Goals Expected Outcomes/Goals 1. PO intake to meet 75% of nutritional needs. 2. Monitor PO intake, wt, nutrition related labs trend WNL, and skin integrity to trend WNL. 3. F/U as low risk in 7 days, 05/09
[2019-05-03] MEDS: Insulin Glargine 100 units/ml 10ml Vial SUBQ SCH (21:28)
[2019-05-04] MEDS: Sodium Chloride 0.9% 1,000 ML IV SCH (00:30)
[2019-05-04 05:21] LABS: % BASOPHILS 0.1 % (0.0-2.0); % EOSINOPHILS 3.6 % (0.0-5.0); % LYMPHOCYTES 27.5 % (20.0-50.0); % MONOCYTES 3.9 % (2.0-10.0); % NEUTROPHILS 64.9 % (40.0-80.0); EOSINOPHILE ABSOLUTE 0.3 Th/cmm (0.1-0.4); HEMATOCRIT 35.7 % (41.0-60); HEMOGLOBIN 12.1 gm/dL (12-16); MEAN CELL VOLUME 85.2 fl (81-100); MEAN CORPUSCULAR HEMOGLOBIN 28.8 pg (27.0-31.0); MEAN CORPUSCULAR HGB CONC 33.8 pg (28.0-36.0); MONOCYTE ABSOLUTE 0.3 Th/cmm (0.3-1.0); NEUTROPHILE ABSOLUTE 4.6 Th/cmm (1.8-8.0); PLATELET COUNT 234 Th/cmm (150-400); RED BLOOD COUNT 4.18 Mil/cmm (3.80-5.20); RED CELL DISTRIBUTION WIDTH 13.5 % (11.5-20.0); WHITE BLOOD COUNT 7.2 Th/cmm (4.8-10.8)
[2019-05-04 05:31] LABS: ANION GAP 11.3 (7.0-16.0); BUN - UREA NITROGEN 13 mg/dL (7-25); CALCIUM SERUM 9.4 mg/dL (8.6-10.3); CARBON DIOXIDE 21.4 mEq/L (21.0-31.0); CHLORIDE 108 mEq/L (98-107); CREATININE - SERUM 0.6 mg/dL (0.6-1.2); GFR AFRICAN-AMERICAN > 60.0 ml/min (>90); GFR NON AFRICAN-AMERICAN > 60.0 ml/min; GLUCOSE 151 mg/dL (70-105); POTASSIUM SERUM 4.7 mEq/L (3.5-5.1); SODIUM SERUM 136 mEq/L (136-145)
[2019-05-04] MEDS: Apixaban 5 MG TABLET PO SCH ×2 (06:58→17:16)
[2019-05-04] MEDS: INSULIN LISPRO SLIDING SCALE 100 UNITS/ML UNIT SUBQ SCH ×3 (06:59→17:13)
[2019-05-04] MEDS: Pantoprazole 40 mg EC Tab PO SCH (08:37)
[2019-05-04] MEDS: Aspirin 81mg Chewable Tab PO SCH (08:38)
--- NOTE | 2019-05-04 09:22 | Diagnostic Imaging Report ---
Exam: CT examination of the pelvis HISTORY: Aneurysm. Total DLP equals 809 CTDI equals 16.4 FINDINGS: Multiple views of the section of the abdomen pelvis obtained from lower thorax to the pubic symphysis without the administration of intravenous or oral contrast, no prior studies available comparison. The study demonstrates basilar atelectasis and pleural thickening with small left lower lobe infiltrate. The liver and spleen intact. The stomach with content. The pancreas is normal. The gallbladder is intact. There is no evidence of obstructive uropathy or nephrolithiasis. The bowel gas distribution nonspecific There is evidence of for right lower anterior abdominal wall hernia containing mesentery there is no evidence of bowel content strangulation. This most likely related to umbilical hernia area The uterus is enlarged calcified fibroid mass Urinary bladder is intact. No free fluid is noted. No abnormal adenopathy appreciated. There is no evidence of diverticular disease of diverticulitis. Degenerative changes lumbosacral spine. The appendix is intact. IMPRESSION: Basilar atelectasis, left lower lobe mild infiltrate Distended stomach Right lower quadrant periumbilical mesenteric hernia fat content measuring 6.7 cm . There is no evidence for bowel herniation. Enlarged uterus, calcified fibroid.
--- NOTE | 2019-05-04 10:55 | General Progress Note ---
Subjective - Review of Systems Service Date: 05/04/19 Subjective: not short of breath Objective - Results Result Diagrams: 05/04/19 05:10 05/04/19 05:10 Recent Labs: Laboratory Last Values WBC 7.2 Th/cmm (4.8-10.8) 05/04/19 05:10 RBC 4.18 Mil/cmm (3.80-5.20) 05/04/19 05:10 Hgb 12.1 gm/dL (12-16) 05/04/19 05:10 Hct 35.7 % (41.0-60) L 05/04/19 05:10 MCV 85.2 fl (81-100) 05/04/19 05:10 MCH 28.8 pg (27.0-31.0) 05/04/19 05:10 MCHC Differential 33.8 pg (28.0-36.0) 05/04/19 05:10 RDW 13.5 % (11.5-20.0) 05/04/19 05:10 Plt Count 234 Th/cmm (150-400) 05/04/19 05:10 MPV 8.3 fl 05/04/19 05:10 Neutrophils % 64.9 % (40.0-80.0) 05/04/19 05:10 Lymphocytes % 27.5 % (20.0-50.0) 05/04/19 05:10 Monocytes % 3.9 % (2.0-10.0) 05/04/19 05:10 Eosinophils % 3.6 % (0.0-5.0) 05/04/19 05:10 Basophils % 0.1 % (0.0-2.0) 05/04/19 05:10 PT 9.8 SECONDS (9.5-11.5) 05/01/19 08:45 INR 0.94 (0.5-1.4) 05/01/19 08:45 PTT (Actin FS) 61.4 SECONDS (26.0-38.0) H 05/01/19 14:30 D-Dimer 2140 ng/mL (100-400) H 04/30/19 14:00 Sodium 136 mEq/L (136-145) 05/04/19 05:10 Potassium 4.7 mEq/L (3.5-5.1) 05/04/19 05:10 Chloride 108 mEq/L (98-107) H 05/04/19 05:10 Carbon Dioxide 21.4 mEq/L (21.0-31.0) 05/04/19 05:10 Anion Gap 11.3 (7.0-16.0) 05/04/19 05:10 BUN 13 mg/dL (7-25) 05/04/19 05:10 Creatinine 0.6 mg/dL (0.6-1.2) 05/04/19 05:10 Est GFR ( Amer) > 60.0 ml/min (>90) 05/04/19 05:10 Est GFR (Non-Af Amer) > 60.0 ml/min 05/04/19 05:10 BUN/Creatinine Ratio 21.7 05/04/19 05:10 Glucose 151 mg/dL (70-105) H 05/04/19 05:10 POC Glucose 119 MG/DL (70 - 105) H 05/04/19 06:26 Calcium 9.4 mg/dL (8.6-10.3) 05/04/19 05:10 Total Bilirubin 0.4 mg/dL (0.3-1.0) 04/30/19 14:00 AST 14 U/L (13-39) 04/30/19 14:00 ALT 20 U/L (7-52) 04/30/19 14:00 Alkaline Phosphatase 121 U/L (34-104) H 04/30/19 14:00 Troponin I < 0.01 ng/mL (0.01-0.05) L 04/30/19 14:00 B-Natriuretic Peptide 7.1 pg/mL (5.0-100.0) 04/30/19 14:00 Total Protein 7.0 gm/dL (6.0-8.3) 04/30/19 14:00 Albumin 3.8 gm/dL (3.7-5.3) 04/30/19 14:00 Globulin 3.2 gm/dL 04/30/19 14:00 Albumin/Globulin Ratio 1.2 (1.0-1.8) 04/30/19 14:00 Triglycerides 286 mg/dL (<150) H 04/30/19 14:00 Cholesterol 229 mg/dL (<200) H 04/30/19 14:00 LDL Cholesterol Direct 123 mg/dL (75-193) 04/30/19 14:00 HDL Cholesterol 43 mg/dL (23-92) 04/30/19 14:00 TSH 0.97 uIU/ml (0.34-5.60) 04/30/19 14:00 Urine Source MIDSTREAM 04/30/19 14:00 Urine Color YELLOW 04/30/19 14:00 Urine Clarity CLOUDY (CLEAR) H 04/30/19 14:00 Urine pH 5.5 (4.6 - 8.0) 04/30/19 14:00 Ur Specific [place] 1.020 (1.005-1.030) 04/30/19 14:00 Urine Protein 100 mg/dL (NEGATIVE) H 04/30/19 14:00 Urine Glucose (UA) >=1000 mg/dL (NEGATIVE) H 04/30/19 14:00 Urine Ketones NEGATIVE mg/dL (NEGATIVE) 04/30/19 14:00 Urine Blood TRACE (NEGATIVE) 04/30/19 14:00 Urine Nitrate NEGATIVE (NEGATIVE) 04/30/19 14:00 Urine Bilirubin NEGATIVE (NEGATIVE) 04/30/19 14:00 Urine Urobilinogen 0.2 E.U./dL (0.2 - 1.0) 04/30/19 14:00 Ur Leukocyte Esterase MODERATE (NEGATIVE) H 04/30/19 14:00 Urine RBC 2-5 /hpf (0-5) 04/30/19 14:00 Urine WBC 10-25 /hpf (0-5) H 04/30/19 14:00 Ur Epithelial Cells MODERATE /lpf (FEW) 04/30/19 14:00 Urine Bacteria 3+ /hpf (NONE SEEN) H 04/30/19 14:00 Fine Granular Casts 0-2 /lpf (NONE SEEN) H 04/30/19 14:00 Urine Opiates Screen NEGATIVE (NEGATIVE) 04/30/19 14:00 Urine Methadone Screen NEGATIVE (NEGATIVE) 04/30/19 14:00 Ur Barbiturates Screen NEGATIVE (NEGATIVE) 04/30/19 14:00 Ur Tricyclics Screen NEGATIVE (NEGATIVE) 04/30/19 14:00 Ur Phencyclidine Scrn NEGATIVE (NEGATIVE) 04/30/19 14:00 Amphetamines Screen NEGATIVE (NEGATIVE) 04/30/19 14:00 U Methamphetamines Scrn NEGATIVE (NEGATIVE) 04/30/19 14:00 U Benzodiazepines Scrn NEGATIVE (NEGATIVE) 04/30/19 14:00 U Cocaine Metab Screen NEGATIVE (NEGATIVE) 04/30/19 14:00 U Cannabinoids Screen NEGATIVE (NEGATIVE) 04/30/19 14:00 - Physical Exam Vitals and I&O: Vital Signs Temp 97.9 F 05/04/19 08:00 Pulse 83 05/04/19 08:37 Resp 18 05/04/19 08:00 BP 151/82 05/04/19 08:37 Pulse Ox 99 05/04/19 08:00 Intake & Output 05/03/19 05/04/19 05/04/19 18:59 06:59 18:59 Intake Total 600 2100 Balance 600 2100 Weight (lbs) 84.822 kg 85.684 kg Intake: Intake, IV Amount 1000 Sodium Chloride 0.9% 1, 1000 000 ml @ 70 mls/hr IV . [id number] [facility] Rx#:[id number] Oral 600 1100 Other: # Voids 3 4 # Bowel Movements 0 0 Weight Source Bedscale Bedscale Active Medications: Current Medications Aspirin (Aspirin Chewable) 81 mg PO DAILY [facility] Stop: 06/30/19 11:59 Last Admin: 05/04/19 08:38 Dose: 81 mg Atorvastatin Calcium (Lipitor) 80 mg PO DAILY [facility]; Protocol Stop: 06/30/19 11:59 Last Admin: 05/04/19 08:37 Dose: 80 mg Benazepril HCl (Lotensin) 40 mg PO HS [facility] Stop: 06/30/19 20:59 Last Admin: 05/03/19 21:10 Dose: Not Given Dextrose (D50w) 50 ml IVP PRN PRN PRN Reason: BS below 70 & not tolerate po Stop: 06/29/19 20:38 Dextrose (Glutose 40%) 18.75 gm PO PRN PRN PRN Reason: BS below 70 & tolerate po Stop: 06/29/19 20:38 Gabapentin 400 mg/ Gabapentin (100 mg) 500 mg PO BID [facility] Stop: 06/30/19 16:59 Last Admin: 05/04/19 08:36 Dose: 500 mg Glucagon (Glucagen) 1 mg IM PRN PRN PRN Reason: BS Below 70&dextrose ineffecti Stop: 06/29/19 20:38 Ceftriaxone Sodium 1 gm/ (Sodium Chloride) 50 mls @ 100 mls/hr IV Q24HR [facility] Stop: 06/30/19 16:59 Last Admin: 05/03/19 16:44 Dose: 100 mls/hr Sodium Chloride (Nacl 0.9%) 1,000 mls @ 70 mls/hr IV .[id number] [facility] Stop: 06/29/19 20:38 Last Admin: 05/04/19 00:30 Dose: 70 mls/hr Insulin Glargine (Lantus Insulin) 60 units SUBQ HS [facility] Stop: 06/30/19 10:48 Last Admin: 05/03/19 21:28 Dose: Not Given Insulin Human Lispro (Humalog Insulin Sliding Scale) 0 units SUBQ [facility]; Protocol Stop: 06/29/19 20:59 Last Admin: 05/04/19 06:59 Dose: Not Given Metformin HCl (Glucophage) 850 mg PO TID [facility] Stop: 06/30/19 13:59 Last Admin: 05/04/19 08:37 Dose: 850 mg Metoprolol Succinate (Toprol Xl) 25 mg PO DAILY [facility] Stop: 06/30/19 11:59 Last Admin: 05/04/19 08:37 Dose: 25 mg Pantoprazole Sodium (Protonix) 40 mg PO DAILY [facility] Stop: 06/30/19 11:59 Last Admin: 05/04/19 08:37 Dose: 40 mg General: Alert Cardiovascular: Regular rate Lungs: Clear to auscultation Abdomen: Soft, no Tender Assessment/Plan - Assessment Assessment: * PE * ENLARGED UTERUS Continue anticoagulation for 6 months check pelvic US Colonoscopy outpt. Nutritional Asmnt/Malnutr-PDOC - Dietary Evaluation Malnutrition Findings (Please click <Entered> for more info): Nutritional Asmnt/Malnutrition Start: 05/02/19 13: 45 Text: Status: Complete Freq: Protocol: Document 05/02/19 13:45 JOSE ENRIQUE (Rec: 05/02/19 13:50 JOSE ENRIQUE [email or web address]) Nutritional Asmnt/Malnutrition Patient General Information Nutritional Screening Moderate Risk Consult Diagnosis UTI, Dehydration Pertinent Medical Hx/Surgical Hx Anemia, GERD, DMT2, HTN, Hyperlipidemia, Arthritis, LT Scalp Surgery Subjective Information Consult: Diabetic Pt is a 68-year-old female admitted on from home 04/30 c/o Rt lower leg pain with 2+ edema. Per ER Chart, PT fell and sprained her RT ankle about a month ago. Pt ate 75- 100% meals 05/01 per Meal/ Nutrition Activity Record. Spoke with Pt after lunch, she was sitting up and had a close family friend at bedside . Pt stated it was OK for friend to stay and listen. Pt stated she has had DM for a long time, but she has trouble controlling her glucose numbers. She does not follow a diet at home, and is being evicted from her home. Pt stated she is going to a convalescent home once discharged and they will provide meals for her. I gave Pt some general education pertaining to a DM diet and provided educational materials to read at her discretion, and stated she should let the convalescent home know she has DM and to keep her on a CCHO diet. Pt understood and was grateful. Stated she has a little diarrhea today, but otherwise feels good, and is happy with the food she has received. HT: 54 WT: 185 LB (84.09 kg) ABW: 136 LB (61.93 kg) BMI: 31.76 (Obese) GI: WNL, Soft, Non-tender, Large BM: 05/02 x1 I/O: 360/Not Noted Skin: Warm, Dry, Loose. BRUNO Lower Extremities with dryness and skin lesions. Edema: 1+ non-pitting Addi: 18 Diet Order: Mechanical Soft, CCHO 45gm Estimated Energy Needs: ( Geriatric, ABW) 2343-4489 kcals (25-30 kcals/ kg) 62-74g Pro (1.0-1.2 g/kg) 9340-6694 ml (25-30 ml/kg) Current Diet Order/ Nutrition Support Mechanical Soft, CCHO 45gm Pertinent Medications Lipitor, D50w (PRN), Glutose 40% (PRN), Glucagen (PRN0, Lantus, INS-SS, Glucophage, Protonix, Nacl 0.9% Pertinent Labs 04/30: Hgb/Hct 11.8/36.4 POC glucose (last 24 hours): 381, 290, 214, 199, 158, 77 Nutritional Hx/Data Height 1.63 m Height (Calculated Centimeters) 162.6 Current Weight (lbs) 83.915 kg Weight (Calculated Kilograms) 83.9 Weight (Calculated Grams) 03392.6 [place] Body Weight 120 LB (54.55 kg) % [place] Body Weight 154 Body Mass Index (BMI) 31.7 Weight Status Obese GI Symptoms GI Symptoms Diarrhea Last BM 05/02 x1 Skin Integrity/Comment: Skin: Warm, Dry, Loose. BRUNO Lower Extremities with dryness and skin lesions. Edema: 1+ non-pitting Addi: 18 Current %PO Good (75-100%) Estimated Nutritional Goals BEE in Kcals: Adj wt of IBW Calories/Kcals/Kg 25-30 Kcals Calculated 4010-8378 Protein: Adj wt of IBW Protein g/k.0-1.2 Protein Calculated 62-74 Fluid: ml 7800-5476 ml (25-30 ml/kg) Nutritional Problem 1. Problem Problem Altered nutrition related labs Etiology r/t endocrine dysfunction Signs/Symptoms: aeb POC glucose (last 24 hours ): 381, 290, 214, 199, 158, 77 . Malnutrition Related to Morbid Obesity Malnutrition related to morbid obesity No Intervention/Recommendation Comments 1. Continue with Mechanical Soft, CCHO 45gm diet as ordered. 2. Continue antihyperglycemic medications for glucose control per MD order. 3. Provide bedside education and educational materials pertaining to DM management ( completed). Expected Outcomes/Goals Expected Outcomes/Goals 1. PO intake to meet 75% of nutritional needs. 2. Monitor PO intake, wt, nutrition related labs trend WNL, and skin integrity to trend WNL. 3. F/U as low risk in 7 days, 05/09
--- NOTE | 2019-05-04 13:36 | Diagnostic Imaging Report ---
Ultrasound pelvis HISTORY: Enlarged uterus. Patient is postmenopausal. COMPARISON: None Technique: Longitudinal and transverse sonographic sector images of the pelvis were obtained transabdominally only. FINDINGS: Exam is limited due to body habitus. The the uterus is heterogeneous and measures 9.7 x 3.7 x 4.8 cm. Endometrial complex cannot be well evaluated but may be thickened with estimated measurement of 1.2 cm. There is areas of calcification within the upper aspect of the uterus possibly due to fibroid changes with this area measuring 2.5 x 2.3 cm. The right ovary measures 4.8 x 2.4 cm and is difficult to assess. Left ovary is not visualized. No free fluid identified. IMPRESSION: Markedly limited exam due to body habitus and as transvaginal images were not obtained. The uterus appears heterogeneous with possible calcified fibroid with this area along the upper body measuring 2.5 x 2.3 cm. Suboptimal assessment of the endometrial complex. This may be thickened measuring 1.2 cm. Clinical correlation and follow-up recommended given patient's postmenopausal status The left ovary was not visualized. No free fluid.
--- NOTE | 2019-05-04 14:19 | Consultation ---
DATE OF CONSULTATION: 05/03/2019 HEMATOLOGY/ONCOLOGY CONSULTATION REFERRED BY: Dr. Hitchcock. DICTATED BY: Dr. Isaías Cano. REASON FOR CONSULTATION: Pulmonary embolism. HISTORY OF PRESENT ILLNESS: The patient is a 68-year-old female who was admitted on 04/30/2019 because of weakness, lower extremity edema, uncontrolled diabetes and her workup included CT scan of the chest, abdomen and pelvis. The CT scan of the abdomen and pelvis reported enlarged uterus and distended stomach with possible left lower lobe infiltrate. The patient was started on antibiotics, ceftriaxone. Her lower extremity edema improved and her CT angiogram showed a filling defect in the left lower lobe pulmonary artery and she was started initially on heparin then switched to apixaban. CURRENT MEDICATIONS: Insulin Lantus, Glucophage, Toprol, Protonix, gabapentin, ceftriaxone, Lotensin, Lipitor, and aspirin. PAST MEDICAL HISTORY: Diabetes, hypertension, dyslipidemia, obesity and diabetic neuropathy. SURGICAL HISTORY: Wound in the scalp from trauma and a boil in the right abdomen. SOCIAL HISTORY: Lives at home. Denies smoking. FAMILY HISTORY: Sister had metastatic colon cancer in her 70s. PHYSICAL EXAMINATION: GENERAL: She is awake, alert, oriented. VITAL SIGNS: Temperature 96.8, blood pressure 107/54. HEENT: Atraumatic. NECK: No lymphadenopathy. CHEST: Equal air entry. HEART: Regular rhythm. ABDOMEN: Obese, soft, no palpable masses. EXTREMITIES: No edema. Multiple scars on old wounds. LABORATORY DATA: On admission, white count 6.9, hemoglobin 11.8, platelets 246. D-dimer is elevated 2140. PT, PTT are baseline normal. Chemistry: Creatinine 1.2. Liver functions: AST, ALT, bilirubin normal, alkaline phosphatase elevated at 121, troponin low. TSH is 0.9. Urinalysis cloudy, elevated leukocyte esterase and white blood cells and bacteria. Urine culture mixed heath. ASSESSMENT: Small pulmonary embolism, asymptomatic with elevated D-dimer raising suspicion of underlying malignancy. The patient has enlarged uterus and will need to be evaluated with pelvic ultrasound. I would continue the anticoagulation for 6 months since this is unprovoked thrombosis of unclear etiology. The patient is up-to-date on her mammogram, but colonoscopy will need to be repeated as outpatient with followup on the results of the pelvic ultrasound if abnormal. Thank you, Dr. Hitchcock for the opportunity to participate in the care of this interesting case. JOB# [id number]
[2019-05-04] MEDS: cefTRIAXone 1 GM in Sodium Chloride 0.9% 50 ML IV SCH (17:16)
--- NOTE | 2019-05-04 21:52 | General Progress Note ---
Subjective - Review of Systems Service Date: 05/04/19 Subjective: Late entry: Patient seen and examined feels better denied any complaints Objective - Results Result Diagrams: 05/04/19 05:10 05/04/19 05:10 Recent Labs: Laboratory Last Values WBC 7.2 Th/cmm (4.8-10.8) 05/04/19 05:10 RBC 4.18 Mil/cmm (3.80-5.20) 05/04/19 05:10 Hgb 12.1 gm/dL (12-16) 05/04/19 05:10 Hct 35.7 % (41.0-60) L 05/04/19 05:10 MCV 85.2 fl (81-100) 05/04/19 05:10 MCH 28.8 pg (27.0-31.0) 05/04/19 05:10 MCHC Differential 33.8 pg (28.0-36.0) 05/04/19 05:10 RDW 13.5 % (11.5-20.0) 05/04/19 05:10 Plt Count 234 Th/cmm (150-400) 05/04/19 05:10 MPV 8.3 fl 05/04/19 05:10 Neutrophils % 64.9 % (40.0-80.0) 05/04/19 05:10 Lymphocytes % 27.5 % (20.0-50.0) 05/04/19 05:10 Monocytes % 3.9 % (2.0-10.0) 05/04/19 05:10 Eosinophils % 3.6 % (0.0-5.0) 05/04/19 05:10 Basophils % 0.1 % (0.0-2.0) 05/04/19 05:10 PT 9.8 SECONDS (9.5-11.5) 05/01/19 08:45 INR 0.94 (0.5-1.4) 05/01/19 08:45 PTT (Actin FS) 61.4 SECONDS (26.0-38.0) H 05/01/19 14:30 D-Dimer 2140 ng/mL (100-400) H 04/30/19 14:00 Sodium 136 mEq/L (136-145) 05/04/19 05:10 Potassium 4.7 mEq/L (3.5-5.1) 05/04/19 05:10 Chloride 108 mEq/L (98-107) H 05/04/19 05:10 Carbon Dioxide 21.4 mEq/L (21.0-31.0) 05/04/19 05:10 Anion Gap 11.3 (7.0-16.0) 05/04/19 05:10 BUN 13 mg/dL (7-25) 05/04/19 05:10 Creatinine 0.6 mg/dL (0.6-1.2) 05/04/19 05:10 Est GFR ( Amer) > 60.0 ml/min (>90) 05/04/19 05:10 Est GFR (Non-Af Amer) > 60.0 ml/min 05/04/19 05:10 BUN/Creatinine Ratio 21.7 05/04/19 05:10 Glucose 151 mg/dL (70-105) H 05/04/19 05:10 POC Glucose 106 MG/DL (70 - 105) H 05/04/19 16:46 Calcium 9.4 mg/dL (8.6-10.3) 05/04/19 05:10 Total Bilirubin 0.4 mg/dL (0.3-1.0) 04/30/19 14:00 AST 14 U/L (13-39) 04/30/19 14:00 ALT 20 U/L (7-52) 04/30/19 14:00 Alkaline Phosphatase 121 U/L (34-104) H 04/30/19 14:00 Troponin I < 0.01 ng/mL (0.01-0.05) L 04/30/19 14:00 B-Natriuretic Peptide 7.1 pg/mL (5.0-100.0) 04/30/19 14:00 Total Protein 7.0 gm/dL (6.0-8.3) 04/30/19 14:00 Albumin 3.8 gm/dL (3.7-5.3) 04/30/19 14:00 Globulin 3.2 gm/dL 04/30/19 14:00 Albumin/Globulin Ratio 1.2 (1.0-1.8) 04/30/19 14:00 Triglycerides 286 mg/dL (<150) H 04/30/19 14:00 Cholesterol 229 mg/dL (<200) H 04/30/19 14:00 LDL Cholesterol Direct 123 mg/dL (75-193) 04/30/19 14:00 HDL Cholesterol 43 mg/dL (23-92) 04/30/19 14:00 TSH 0.97 uIU/ml (0.34-5.60) 04/30/19 14:00 Urine Source MIDSTREAM 04/30/19 14:00 Urine Color YELLOW 04/30/19 14:00 Urine Clarity CLOUDY (CLEAR) H 04/30/19 14:00 Urine pH 5.5 (4.6 - 8.0) 04/30/19 14:00 Ur Specific [place] 1.020 (1.005-1.030) 04/30/19 14:00 Urine Protein 100 mg/dL (NEGATIVE) H 04/30/19 14:00 Urine Glucose (UA) >=1000 mg/dL (NEGATIVE) H 04/30/19 14:00 Urine Ketones NEGATIVE mg/dL (NEGATIVE) 04/30/19 14:00 Urine Blood TRACE (NEGATIVE) 04/30/19 14:00 Urine Nitrate NEGATIVE (NEGATIVE) 04/30/19 14:00 Urine Bilirubin NEGATIVE (NEGATIVE) 04/30/19 14:00 Urine Urobilinogen 0.2 E.U./dL (0.2 - 1.0) 04/30/19 14:00 Ur Leukocyte Esterase MODERATE (NEGATIVE) H 04/30/19 14:00 Urine RBC 2-5 /hpf (0-5) 04/30/19 14:00 Urine WBC 10-25 /hpf (0-5) H 04/30/19 14:00 Ur Epithelial Cells MODERATE /lpf (FEW) 04/30/19 14:00 Urine Bacteria 3+ /hpf (NONE SEEN) H 04/30/19 14:00 Fine Granular Casts 0-2 /lpf (NONE SEEN) H 04/30/19 14:00 Urine Opiates Screen NEGATIVE (NEGATIVE) 04/30/19 14:00 Urine Methadone Screen NEGATIVE (NEGATIVE) 04/30/19 14:00 Ur Barbiturates Screen NEGATIVE (NEGATIVE) 04/30/19 14:00 Ur Tricyclics Screen NEGATIVE (NEGATIVE) 04/30/19 14:00 Ur Phencyclidine Scrn NEGATIVE (NEGATIVE) 04/30/19 14:00 Amphetamines Screen NEGATIVE (NEGATIVE) 04/30/19 14:00 U Methamphetamines Scrn NEGATIVE (NEGATIVE) 04/30/19 14:00 U Benzodiazepines Scrn NEGATIVE (NEGATIVE) 04/30/19 14:00 U Cocaine Metab Screen NEGATIVE (NEGATIVE) 04/30/19 14:00 U Cannabinoids Screen NEGATIVE (NEGATIVE) 04/30/19 14:00 - Physical Exam Vitals and I&O: Vital Signs Temp 98 F 05/04/19 16:49 Pulse 93 05/04/19 16:49 Resp 18 05/04/19 16:49 BP 138/78 05/04/19 16:49 Pulse Ox 96 05/04/19 16:49 Intake & Output 05/04/19 05/04/19 05/05/19 06:59 18:59 06:59 Intake Total 2099 1999 Balance 2099 1999 Weight (lbs) 85.684 kg 83.915 kg Intake: Intake, IV Amount 1000 Sodium Chloride 0.9% 1, 1000 000 ml @ 70 mls/hr IV . [id number] BECKIE Rx#:[id number] Oral 1100 1999 Other: # Voids 4 3 # Bowel Movements 0 0 Weight Source Bedscale Bedscale General: Alert Cardiovascular: Regular rate Lungs: Clear to auscultation Abdomen: Soft, no Tender Assessment/Plan - Assessment Assessment: Acute PE UTI DM II with Neuropathy Fibroid uterus HTN - Plan Plan: continue Eliquis Hematology / oncology eval noted CT ABD/ PELVIS and PELVIC US result noted SNIF DC plan for today patient is aware Plan of care dw nursing staff Nutritional Asmnt/Malnutr-PDOC - Dietary Evaluation Malnutrition Findings (Please click <Entered> for more info): Nutritional Asmnt/Malnutrition Start: 05/02/19 13: 45 Text: Status: Complete Freq: Protocol: Document 05/02/19 13:45 JOSE ENRIQUE (Rec: 05/02/19 13:50 JOSE ENRIQUE [id number]) Nutritional Asmnt/Malnutrition Patient General Information Nutritional Screening Moderate Risk Consult Diagnosis UTI, Dehydration Pertinent Medical Hx/Surgical Hx Anemia, GERD, DMT2, HTN, Hyperlipidemia, Arthritis, LT Scalp Surgery Subjective Information Consult: Diabetic Pt is a 68-year-old female admitted on from home 04/30 c/o Rt lower leg pain with 2+ edema. Per ER Chart, PT fell and sprained her RT ankle about a month ago. Pt ate 75- 100% meals 05/01 per Meal/ Nutrition Activity Record. Spoke with Pt after lunch, she was sitting up and had a close family friend at bedside . Pt stated it was OK for friend to stay and listen. Pt stated she has had DM for a long time, but she has trouble controlling her glucose numbers. She does not follow a diet at home, and is being evicted from her home. Pt stated she is going to a convalescent home once discharged and they will provide meals for her. I gave Pt some general education pertaining to a DM diet and provided educational materials to read at her discretion, and stated she should let the convalescent home know she has DM and to keep her on a CCHO diet. Pt understood and was grateful. Stated she has a little diarrhea today, but otherwise feels good, and is happy with the food she has received. HT: 54 WT: 185 LB (84.09 kg) ABW: 136 LB (61.93 kg) BMI: 31.76 (Obese) GI: WNL, Soft, Non-tender, Large BM: 05/02 x1 I/O: 360/Not Noted Skin: Warm, Dry, Loose. BRUNO Lower Extremities with dryness and skin lesions. Edema: 1+ non-pitting Addi: 18 Diet Order: Mechanical Soft, CCHO 45gm Estimated Energy Needs: ( Geriatric, ABW) 9442-2102 kcals (25-30 kcals/ kg) 62-74g Pro (1.0-1.2 g/kg) 5836-3660 ml (25-30 ml/kg) Current Diet Order/ Nutrition Support Mechanical Soft, CCHO 45gm Pertinent Medications Lipitor, D50w (PRN), Glutose 40% (PRN), Glucagen (PRN0, Lantus, INS-SS, Glucophage, Protonix, Nacl 0.9% Pertinent Labs 04/30: Hgb/Hct 11.8/36.4 POC glucose (last 24 hours): 381, 290, 214, 199, 158, 77 Nutritional Hx/Data Height 1.63 m Height (Calculated Centimeters) 162.6 Current Weight (lbs) 83.915 kg Weight (Calculated Kilograms) 83.9 Weight (Calculated Grams) 71054.6 [place] Body Weight 120 LB (54.55 kg) % [place] Body Weight 154 Body Mass Index (BMI) 31.7 Weight Status Obese GI Symptoms GI Symptoms Diarrhea Last BM 05/02 x1 Skin Integrity/Comment: Skin: Warm, Dry, Loose. BRUNO Lower Extremities with dryness and skin lesions. Edema: 1+ non-pitting Addi: 18 Current %PO Good (75-100%) Estimated Nutritional Goals BEE in Kcals: Adj wt of IBW Calories/Kcals/Kg 25-30 Kcals Calculated 3088-0885 Protein: Adj wt of IBW Protein g/k.0-1.2 Protein Calculated 62-74 Fluid: ml 9543-9036 ml (25-30 ml/kg) Nutritional Problem 1. Problem Problem Altered nutrition related labs Etiology r/t endocrine dysfunction Signs/Symptoms: aeb POC glucose (last 24 hours ): 381, 290, 214, 199, 158, 77 . Malnutrition Related to Morbid Obesity Malnutrition related to morbid obesity No Intervention/Recommendation Comments 1. Continue with Mechanical Soft, CCHO 45gm diet as ordered. 2. Continue antihyperglycemic medications for glucose control per MD order. 3. Provide bedside education and educational materials pertaining to DM management ( completed). Expected Outcomes/Goals Expected Outcomes/Goals 1. PO intake to meet 75% of nutritional needs. 2. Monitor PO intake, wt, nutrition related labs trend WNL, and skin integrity to trend WNL. 3. F/U as low risk in 7 days, 05/09
--- NOTE | 2019-05-19 03:41 | Discharge Summary ---
DATE OF DISCHARGE: 05/04/2019 FINAL DIAGNOSES: 1. Acute pulmonary embolism. 2. Diabetes with nephropathy. 3. Hypertension. 4. Fibroid uterus. 5. Generalized weakness. HOSPITAL COURSE: This is a 68-year-old female admitted for evaluation of generalized weakness. The patient's D-dimer was elevated CT angio chest came back positive for PE. Patient was started on anticoagulation. Hematology evaluated the patient and agreed with the current anticoagulation plan. After clinical improvement, patient was cleared for discharge to retirement facility rehabilitation for continuation of care. DISCHARGE CONDITION: Stable. DISCHARGE MEDICATIONS: Please see PRETTY JOB# [id number] MARK
== END 2019-05-04 18:20 | DRG 176 ==
LOC: ER 12:46 → MSI 18:08 → TELE 19:27
PROVIDERS: ADMIT Family Medicine; ATTEND Family Medicine
DX: I26.99 Other pulmonary embolism without acute cor pulmonale (principal); N39.0 Urinary tract infection, site not specified; E87.0 Hyperosmolality and hypernatremia; E11.65 Type 2 diabetes mellitus with hyperglycemia; I10 Essential (primary) hypertension; E78.5 Hyperlipidemia, unspecified; E86.0 Dehydration; E11.40 Type 2 diabetes mellitus with diabetic neuropathy, unspecified; R74.8 Abnormal levels of other serum enzymes; D25.9 Leiomyoma of uterus, unspecified
CPT/HCPCS: 36415-UA; 71045-TC; 71275-TC; 73560-TC-RT; 73610-RT-TC; 76856-TC; 80048-TC; 80053-TC; 80061-TC; 80307; 81001-TC; 82948-90; 83036-90; 83880-TC; 84443-TC; 84484-TC; 85025-TC; 85379-TC; 85610-TC; 85730-TC; 87086-90; 93005; 93971-TC-RT; 94760; 97530; J0696; J1644; J1815; J7030; Q9967; X3904; Z7610